=== PATIENT | male | born 1980 | race Caucasian/White ===

== ENCOUNTER 2016-11-24 03:40 | Emergency (ER) | payer OTHER ==
[~2016-11-24] VITALS: Ht 182.9 cm; Wt 105.0 kg
[2016-11-24 03:43] VITALS: BP 153/108; PULSE 119; RESP 18; TEMP 98.2; O2SAT 98
[2016-11-24 04:09] VITALS: RESP 16
[2016-11-24 04:18] LABS: AUTOMATED NEUTROPHIL # 8.4 TH/MM3 (1.8-7.7); BASOPHIL # 0.1 TH/MM3 (0-0.2); BASOPHIL % 0.6 % (0.0-2.0); EOSINOPHIL # 0.1 TH/MM3 (0-0.4); HEMATOCRIT 47.7 % (39.0-51.0); HEMO FLAGS DIFF FINAL; LYMPH % 24.5 % (9.0-44.0); LYMPHOCYTE # 3.2 TH/MM3 (1.0-4.8); MEAN CELL VOLUME 91.6 FL (80.0-100.0); MEAN CORPUSCULAR HEMOGLOBIN 32.4 PG (27.0-34.0); MEAN CORPUSCULAR HGB CONC 35.4 % (32.0-36.0); MONO % 8.8 % (0.0-8.0); NEUT % 65.1 % (16.0-70.0); PLATELET COUNT 187 TH/MM3 (150-450); RED CELL DISTRIBUTION WIDTH 13.7 % (11.6-17.2); WHITE BLOOD COUNT 12.9 TH/MM3 (4.0-11.0)
[2016-11-24 04:37] LABS: ALKALINE PHOSPHATASE 89 U/L (45-117); ALT (GPT) 48 U/L (12-78); ANION GAP 11 MEQ/L (5-15); AST (GOT) 27 U/L (15-37); BICARBONATE 22.5 MEQ/L (21.0-32.0); BLOOD UREA NITROGEN 9 MG/DL (7-18); CHLORIDE 113 MEQ/L (98-107); CREATINE KINASE 435 U/L (39-308); GLOMERULAR FILTRATION RATE 87 ML/MIN (>89); MAGNESIUM 2.3 MG/DL (1.5-2.5); SODIUM (NA) 146 MEQ/L (136-145); TOTAL BILIRUBIN ADULT 0.4 MG/DL (0.2-1.0)
[2016-11-24 04:39] LABS: POTASSIUM 3.7 MEQ/L (3.5-5.1)
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
[2016-11-24 04:51] LABS: CKMB 3.2 NG/ML (0.5-3.6)
[2016-11-24] MEDS ORDERED: SODIUM CHLOR 0.9% 1000 ML INJ 1,000 ML IV ONE (05:00)
[2016-11-24] MEDS ORDERED: LORazepam 2 MG/ML VIAL IV PUSH ONE (05:00)
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
[2016-11-24 05:25] VITALS: BP 127/74; PULSE 105; RESP 16; O2SAT 98
--- NOTE | 2016-11-24 14:54 | EKG ---
Date Performed: 11/24/2016 Time Performed: 03:52:26 PTAGE: 36 years EKG: SINUS TACHYCARDIA NONSPECIFIC T-WAVE ABNORMALITY ABNORMAL RHYTHM ECG NO PREVIOUS TRACING DOCTOR: Wandy Fair Interpretating Date/Time 11/24/2016 14:49:30
== END 2016-11-24 06:15 | disposition home or self-care (01) ==
LOC: NEPE 03:40
DX: I47.1 Supraventricular tachycardia (principal); Z72.0 Tobacco use; E87.0 Hyperosmolality and hypernatremia; D72.829 Elevated white blood cell count, unspecified
CPT/HCPCS: 71010; 80053; 82550; 82552; 83735; 84484; 85025; 93005; 96374; 99285; J2060; J7030